=== PATIENT | female | born 1930 | race Caucasian/White ===

== ENCOUNTER 2020-03-17 17:02 | Inpatient (IN) | payer MEDICARE, BC ==
[2020-03-17] VITALS (9 sets, daily range): BP systolic 98–125; BP diastolic 48–78
[~2020-03-17] VITALS: Ht 162.6 cm; Wt 60.3 kg
--- NOTE | 2020-03-17 21:00 | NUR ---
RN NOTES RECEIVED DIRECT ADMIT PATIENT FROM [facility]. PER REPORT PATIENT WILL ADMITTED FOR CARDIAC CATHETERIZATION DUE TO ELEVATED TROPONIN LAST TROPONIN WAS 15.724 PRIOR TO ADMISS[address]. PER [address] PIERRE. PATIENT IS ALERT ORIENTED X 4 SPEAK SOFTLY. CONNECTED TO MONITOR REVEALS AFIB HR 79 SATURATION 96% IN ROOM AIR. PATIENT HAD S/P FALL FROM HOME SUSTAIN WITH LEFT HUMERAL FRACTURE SLING PRESENT PRIOR TO ADMISSION. IV SITE ON RH G 20 AND RFA G 22 HL INTACT AND PATENT. PATIENT IS AWARE BUT NOT FULLY UNDERSTAND REGARDING THE UPCOMING PROCEDURE. WILL WAIT FOR THE ORDER TO ASKED FOR CONSENT. INSTRUCTED WITH CALL LIGHT AND DEMONSTRATE UNDERSTANDING. KEPT PT CLEAN AND DRY WITH BMX1. CALL LIGHT KEPT WITHIN EASY REACH. WILL CONT. TO MONITOR.
--- NOTE | 2020-03-17 21:20 | NUR ---
RN NOTES VERIFIED WITH DR. APODACA ABOUT THE PATIENT ADMISSION PER NICKEL PLATER PATIENT WILL BED ADMITTED BY HOSPITALIST, INFORMED DR. WANG AND MADE HER AWARE.
[2020-03-17] MEDS ORDERED: ATOR40TA PO (21:24)
[2020-03-17] MEDS ORDERED: [UNRECOGNIZED DRUG - OTHER] PO (21:24)
[2020-03-17] MEDS ORDERED: CARB-93 PO (21:32)
[2020-03-17] MEDS ORDERED: CEFT1PIG2 IV (21:32)
[2020-03-17] MEDS ORDERED: CLOP75TA15 PO (21:32)
[2020-03-17] MEDS ORDERED: CARV3.122 PO (21:32)
[2020-03-17] MEDS ORDERED: DOCU100C36 PO (21:32)
[2020-03-17] MEDS ORDERED: ONDANSETRON HCL/PF 4 MG/2 ML VIAL IVP PRN (22:30)
[2020-03-17] MEDS ORDERED: MORPHINE SULFATE INJ 2 MG/ML DISP.SYRIN IV PRN (22:30)
[2020-03-17] MEDS ORDERED: MAGNESIUM HYDROXIDE 30 ML UDC PO PRN (22:30)
[2020-03-17] MEDS ORDERED: Z GUARD REMEDY 2 OZ OINT TP PRN (22:30)
[2020-03-17] MEDS ORDERED: HYDROCODONE/APAP 5/325MG TABLET PO PRN (22:30)
[2020-03-17] MEDS ORDERED: ZOLPIDEM TARTRATE 5 MG TABLET PO PRN (22:30)
[2020-03-17] MEDS ORDERED: IV D5/0.45 NACL 1,000 ML IV PRN (22:30)
[2020-03-17] MEDS ORDERED: MAG HYDROX/AL HYDROX/SIMETH 30 ML UDC PO PRN (22:30)
--- NOTE | 2020-03-17 23:25 | NUR ---
RN NOTES RECEIVED A CALL FROM LAB AND REPORTED PATIENT TROPONIN 2.462, PATIENT LAST TROPONIN AT [facility] WAS 15.724, RELAYED RESULT TO DR. WANG THAT PATIENT TROPONIN WENT DOWN TO 2.462.NNO AT THIS TIME.
[2020-03-18] VITALS (45 sets, daily range): BP systolic 80–139; BP diastolic 24–84
[2020-03-18] MEDS ORDERED: MORPHINE SULFATE INJ 2 MG/ML DISP.SYRIN ONE (01:27)
--- NOTE | 2020-03-18 02:00 | NUR ---
RN NOTES PATIENT SCREAM FOR HELP , WENT TO PATIENT ROOM AND PATIENT STATED " HELP ME TO , ITS USELESS TO LIVE NOW". COMFORT CARE PROVIDED, GIVE SOME TIME TO PATIENT TO FEEL SAFE AND HAVE HOPE. PATIENT WANTS SOMEONE TO TALK TO AT ALL TIMES. FEELING HOPELESS AND ALONE.
[2020-03-18 04:43] LABS: BASOPHILS % (AUTO) 0.3 % (0.0-2.0); HEMATOCRIT 38 % (33-45); HEMOGLOBIN 12.4 g/dL (11.5-14.8); LYMPHOCYTES # (AUTO) 0.8 /CMM (0.8-4.8); LYMPHOCYTES % (AUTO) 6.7 % (20.0-44.0); MEAN CORPUSCULAR HGB CONC 33 g/dl (31.0-36.0); MEAN CORPUSCULAR VOLUME 90 fL (82-100); MONOCYTES # (AUTO) 0.7 /CMM (0.1-1.30); MONOCYTES % (AUTO) 5.7 % (2.0-12.0); NEUTROPHILS # (AUTO) 10.7 /CMM (1.8-8.9); NEUTROPHILS % (AUTO) 87.3 % (43.0-81.0); PLATELET COUNT (AUTO) 89 /CMM (150-450); WHITE BLOOD COUNT (AUTO) 12.3 K/uL (4.3-11.0)
[2020-03-18 05:10] LABS: LYMPHOCYTES % (MANUAL) 8 % (16-48); NEUTROPHILS % (MANUAL) 84 (42-76)
[2020-03-18 05:11] LABS: MONOCYTES % (MANUAL) 8 % (0-11.0)
[2020-03-18 05:31] LABS: CALCIUM, SERUM 8.3 mg/dL (8.5-10.1); MAGNESIUM 2.4 mg/dL (1.8-2.4); PHOSPHORUS 2.7 mg/dL (2.5-4.9); POTASSIUM 3.4 mmol/L (3.5-5.1)
[2020-03-18] MEDS ORDERED: IV NS 0.9% 1,000 ML ONE (05:39)
[2020-03-18] MEDS ORDERED: VERAPAMIL HCL IV 5 MG/2 ML VIAL ONE (05:39)
[2020-03-18] MEDS ORDERED: NITROGLYCERIN ICAR 1,000 MCG/10 ML VIAL ICAR ONE (05:39)
[2020-03-18] MEDS ORDERED: LIDOCAINE HCL/MPF 1% 30 ML VIAL IJ ONE (05:39)
[2020-03-18] MEDS ORDERED: IODIXANOL 150 ML IV ONE (05:39)
[2020-03-18] MEDS ORDERED: IV NS 0.9% 50 ML IV ONE (05:58)
[2020-03-18] MEDS ORDERED: MIDAZOLAM HCL 2 MG/2ML VIAL ONE ×2 (06:15→10:21)
[2020-03-18] MEDS ORDERED: HEPARIN SODIUM, PORCINE 1,000 UNIT/ML VIAL ONE (06:15)
[2020-03-18] MEDS ORDERED: FENTANYL PF 100MCG/2ML AMPUL ONE (06:15)
--- NOTE | 2020-03-18 06:25 | NUR ---
RN NOTES PATIENT PICKED UP BY OR STAFF, CONSENT SIGNED WITH EDCEL AT BEDSIDE EXPLAINED THE PROCEDURE ABOUT LEFT HEART ART/VENTRICLE ANGIO OR HEART CATH. PATIENT IS AOX4 AGREED AND SIGNED CONSENT. LEFT AT THE ROOM AT THIS TIME.
--- NOTE | 2020-03-18 08:10 | NUR ---
RN INITIAL NOTES RECEIVED PT AWAKE, A/OX4 FROM DOSIER OPERATOR. RIGHT TR BAND IN PLACE. GOOD PALPABLE PULSE NOTED. NO CIRCULATORY IMPAIRMENT NOTED. PT ON ROOM AIR. CONNECTED TO MONITOR. VS WNL. SLING ON DUE TO LEFT HUMERAL FRACTURE. IV LINES IN PLACE. REIS IN PLACE. NO HEMATURIA NOTED. WILL FOLLOW POST CARDIAC CATH ORDERS. WILL CLOSELY MONITOR
[2020-03-18] MEDS ORDERED: POTASSIUM CHLORIDE 20 MEQ POWDER PACKET PO ONE (08:30)
[2020-03-18] MEDS: PANTOPRAZOLE 40 MG TABLET.DR PO SCH (08:40)
[2020-03-18] MEDS: ASPIRIN 81 MG TAB.CHEW PO SCH (08:40)
[2020-03-18] MEDS: LOSARTAN POTASSIUM 25 MG TABLET PO SCH (08:41)
[2020-03-18] MEDS: CARVEDILOL 3.125 MG TABLET PO SCH ×2 (08:41→16:51)
[2020-03-18] MEDS ORDERED: PANTOPRAZOLE 40 MG VIAL IV SCH (09:00)
--- NOTE | 2020-03-18 10:00 | NUR ---
RN NOTES RIGHT TR BAND REMOVED. NO BLEEDING NOTED. GOOD PALPABLE PULSE NOTED. NO CIRCULATORY IMPAIRMENT NOTED. WILL CLOSELY MONITOR
[2020-03-18] MEDS ORDERED: FENTANYL PF 250MCG/5ML AMPUL ONE (10:22)
[2020-03-18] MEDS ORDERED: FAMOTIDINE/PF INJ 20 MG/2 ML VIAL IV ONE (10:22)
[2020-03-18] MEDS ORDERED: BACITRACIN 50000 UNITS/VIAL ONE (11:32)
[2020-03-18] MEDS ORDERED: BUPIVACAINE 0.5 % PF 150 MG/30 ML VIAL ONE (11:32)
--- NOTE | 2020-03-18 11:55 | NUR ---
RN NOTES PT LEFT TO OR FOR LEFT HUMERUS ORIF. PT A/OX4. ON ROOM AIR. DENIES ANY PAIN. LEFT IN STABLE CONDITION
[2020-03-18] MEDS ORDERED: VANCOMYCIN 1 GM VIAL ONE (13:18)
--- NOTE | 2020-03-18 14:37 | NUR ---
RN NOTES RECEIVED PT FROM OR, SP LEFT HUMERUS ORIF. PT VERY DROWSY, OPEN EYES ON TACTILE STIMULI. SLOW RESPONSE TO VERBAL COMMANDS. ON SIMPLE MASK AT 10LPM. HOB ELEVATED. SURGICAL DRESSING ON LEFT SHOULDER. NO SIGNS OF BLEEDING NOTED. IV LINES IN PLACE. REIS IN PLACE. SHAREE REBOLLEDO NP IN THE UNIT. AWARE OF PT'S CURRENT CONDITION. WILL CLOSELY MONITOR.
[2020-03-18] MEDS ORDERED: MORPHINE SULFATE INJ 2 MG/ML DISP.SYRIN IV PRN (15:00)
[2020-03-18] MEDS ORDERED: HYDROCODONE/APAP 10/325MG TABLET PO PRN (15:00)
[2020-03-18] MEDS: IV D5/0.45 NACL W/20 MEQ KCL 1L IV PRN ×2 (16:43)
[2020-03-18] MEDS ORDERED: PIPERACILLIN /TAZOBACTAM 3.375 G in IV D5W 50 ML IV ONE (18:00)
--- NOTE | 2020-03-18 18:50 | NUR ---
RN CLOSING NOTES PT A/OX1, DROWSY. ON ROOM AIR. NO SOB NOTED. HOB ELEVATED. NO SIGNS OF PAIN NOTED. IVF INFUSING. SP LEFT HUMERUS ORIF, DRESSING ON. NO ACTIVE BLEEDING NOTED. SLING ON. KEPT CLEAN AND DRY. REPOSITIONING Q2. WILL ENDORSE FOR CONTINUITY OF CARE.
[2020-03-18] MEDS ORDERED: NOREPINEPHRINE 8 MG in IV NS 0.9% 242 ML IV PRN (19:30)
--- NOTE | 2020-03-18 19:30 | NUR ---
RN NOTES RECEIVED PATIENT DROWSY BARELY ANSWERING QUESTION AND FOLLOWS COMMAND. PATIENT HAD A S/P CARDIAC CATH THIS MORNING AND S/P ORIF OF LEFT PROXIMAL HUMERUS FX. WITH SLING ON AFFECTED SITE. AFIB ON TELE MONITOR. SATURATION 93% IN ROOM AIR. NO SOB OR ACUTE RESPIRATORY DISTRESS. AFEBRILE. SBP IN 90'S PALE LOOKING LEVOPHED STANDBY. IV SITE ON RH G 20 AND RFA G 22 INTACT AND PATENT ONGOING . KEPT PT CLEAN AND DRY. TURN AND REPOSITION GENTLY. WILL CLOSELY MONITOR.
[2020-03-18] MEDS: ANCEF 1 GM/50 ML D5W IV SCH ×2 (21:00)
--- NOTE | 2020-03-18 21:06 | NUR ---
RN NOTES STARTED LEVOPHED SBP WENT DOWN TO 83/41 REPEATED X3 SBP STILL <90MMHG. WILL TITRATED
--- NOTE | 2020-03-18 21:30 | NUR ---
RN NOTES INSERTED IV ON LH G 20 INTACT WITH GOOD BLD. RETURN.
[2020-03-19] VITALS (59 sets, daily range): BP systolic 67–142; BP diastolic 33–76
--- NOTE | 2020-03-19 | NUR ---
RN NOTES PATIENT REMAINED DROWSY BUT ABLE TO ANSWER QUESTION SOFTLY. FOLLOWS COMMAND BY SQUEEZING HAND AND VERBALIZED FEELINGS. WILL CONTINUE TO MONITOR.
[2020-03-19] MEDS: PIPERACILLIN /TAZOBACTAM 3.375 G in IV D5W 100 ML IV SCH ×3 (01:25→17:09)
[2020-03-19] MEDS: ANCEF 1 GM/50 ML D5W IV SCH ×2 (04:52)
[2020-03-19 05:03] LABS: BASOPHILS % (AUTO) 0.1 % (0.0-2.0); EOSINOPHILS % (AUTO) 0.3 % (0.0-6.0); HEMATOCRIT 38 % (33-45); LYMPHOCYTES # (AUTO) 0.9 /CMM (0.8-4.8); LYMPHOCYTES % (AUTO) 2.8 % (20.0-44.0); MEAN CORPUSCULAR HGB CONC 32 g/dl (31.0-36.0); MEAN CORPUSCULAR VOLUME 92 fL (82-100); MONOCYTES % (AUTO) 6.1 % (2.0-12.0); NEUTROPHILS # (AUTO) 29.2 /CMM (1.8-8.9); NEUTROPHILS % (AUTO) 90.7 % (43.0-81.0); PLATELET COUNT (AUTO) 62 /CMM (150-450); RED BLOOD CELL COUNT(AUTO) 4.13 MIL/uL (4.0-5.2)
[2020-03-19 05:07] LABS: WHITE BLOOD COUNT (AUTO) 32.2 K/uL (4.3-11.0)
[2020-03-19] MEDS: IV D5/0.45 NACL W/20 MEQ KCL 1L IV PRN ×4 (05:07→17:08)
[2020-03-19 05:08] LABS: CALCIUM, SERUM 8.2 mg/dL (8.5-10.1); CARBON DIOXIDE 18 mmol/L (21-32); CHLORIDE 109 mmol/L (98-107); CREATININE 1.7 mg/dL (0.6-1.3); GLUCOSE 179 mg/dL (74-106); MAGNESIUM 2.6 mg/dL (1.8-2.4); POTASSIUM 4.6 mmol/L (3.5-5.1); SODIUM SERUM 144 mmol/L (136-145); UREA NITROGEN, BLOOD 66 mg/dL (7-18)
[2020-03-19 05:23] LABS: LYMPHOCYTES % (MANUAL) 4 % (16-48); MONOCYTES % (MANUAL) 7 % (0-11.0); NEUTROPHILS % (MANUAL) 89 (42-76)
--- NOTE | 2020-03-19 06:00 | NUR ---
RN NOTES BEDBATH DONE AND TOLERATED WELL. PATIENT IS MORE AWAKE AND BACK TO BASELINE MENTAL STATUS. DENIES PAIN. AFEBRILE. VSS. CONTINUE WITH LEVOPHED TITRATED ORDERED. PATIENT ATE WELL AND TOLERATED WELL. RIGHT RADIAL NO BLEEDING BRUISE STILL NOTED. KEPT PT CLEAN AND DRY. WILL ENDORSED CONTINUITY OF CARE TO AM NURSE.
--- NOTE | 2020-03-19 07:20 | NUR ---
RN INITIAL NOTES RECEIVED PT ASLEEP, EASY TO AROUSE. ON ROOM AIR. NO SOB NOTED. HOB ELEVATED. DENIES ANY PAIN AT THIS TIME. IVF INFUSING. ON LEVO AT 0.1MCG/KG/MIN. WILL TITRATE ACCORDINGLY. FC IN PLACE. NO HEMATURIA NOTED. BLE ELEVATED. WILL MONITOR
[2020-03-19] MEDS: ASPIRIN 81 MG TAB.CHEW PO SCH (08:30)
--- NOTE | 2020-03-19 08:30 | NUR ---
RN NOTES SEEN AND EXAMINED BY SHAREE REBOLLEDO NP. AWARE OF CURRENT LAB VALUES AND CXR RESULT. PT ON LEVO, WILL TITRATE ACCORDINGLY. ON IVF. WILL CONTINUE TO MONITOR
[2020-03-19] MEDS: CARVEDILOL 3.125 MG TABLET PO SCH ×2 (08:31→17:00)
[2020-03-19] MEDS: LOSARTAN POTASSIUM 25 MG TABLET PO SCH (08:31)
[2020-03-19] MEDS: PANTOPRAZOLE 40 MG TABLET.DR PO SCH (08:31)
[2020-03-19 15:39] LABS: BILIRUBIN,URINE NEGATIVE (NEGATIVE); BLOOD, URINE LARGE Ery/uL (NEGATIVE); COLOR,URINE YELLOW (YELLOW); LEUKOCYTE ESTERASE ,URINE NEGATIVE (NEGATIVE); NITRITE, URINE NEGATIVE (NEGATIVE); PH,URINE 5.5 (5.0-8.0); PROTEIN,URINE 100 mg/dl (NEGATIVE); UGLUCOSE NEGATIVE (NEGATIVE); UROBILINOGEN,URINE 0.2 EU/dL (0.2)
[2020-03-19 15:48] LABS: EOSINOPHIL,URINE None Seen
[2020-03-19 15:52] LABS: BACTERIA,URINE 1+ /HPF (None Seen); RBC,URINE 51-80 /HPF (0-2); WBC,URINE 0-2 /HPF (0-3)
[2020-03-19 15:53] LABS: COARSE GRANULAR CASTS,URINE Few /LPF (None Seen); SQUAMOUS EPITHELIAL CELL,UR Few /HPF (None Seen)
--- NOTE | 2020-03-19 18:54 | NUR ---
RN CLOSING NOTES NO SIGNIFICANT CHANGE NOTED. PT REMAINS A/O, ON ROOM AIR. NO RESPIRATORY DISTRESS NOTED. KEPT COMFORTABLE. KEPT CLEAN AND DRY. REPOSITIONED Q2. BLE ELEVATED. WILL ENDORSE FOR CONTINUITY OF CARE.
--- NOTE | 2020-03-19 19:35 | NUR ---
RN NOTES RECEIVED PATIENT AWAKE ALERT ORIENTED WATCHING TV ON BED AND DRINKING MILK, MINIMAL ASSISTANCE PROVIDED. AFEBRILE. NO SOB IN ROOM AIR. SATURATION 95%. AFIB ON TELE MONITOR. DENIES CHEST PAIN. LEFT ARM WITH SLING KEPT IN PLACED. DENIES PAIN. IV SITE ON RH G#20 ,LW G#20 AND RFA ARE ALL INTACT AND PATENT WITH IVF RUNNING ORDERED. KEPT PT CLEAN AND DRY. TURNED AND REPOSITION FOR COMFORT. WILL CONTINUE TO MONITOR.
[2020-03-20] VITALS (17 sets, daily range): BP systolic 94–132; BP diastolic 34–96
[2020-03-20] MEDS: PIPERACILLIN /TAZOBACTAM 3.375 G in IV D5W 100 ML IV SCH ×2 (01:31→09:58)
[2020-03-20 04:35] LABS: BASOPHILS % (AUTO) 0.1 % (0.0-2.0); EOSINOPHILS % (AUTO) 0.1 % (0.0-6.0); HEMATOCRIT 33 % (33-45); HEMOGLOBIN 10.9 g/dL (11.5-14.8); LYMPHOCYTES # (AUTO) 1.5 /CMM (0.8-4.8); LYMPHOCYTES % (AUTO) 7.1 % (20.0-44.0); MEAN CORPUSCULAR HGB CONC 33 g/dl (31.0-36.0); MEAN CORPUSCULAR VOLUME 90 fL (82-100); MONOCYTES # (AUTO) 0.8 /CMM (0.1-1.30); MONOCYTES % (AUTO) 3.9 % (2.0-12.0); NEUTROPHILS # (AUTO) 19.3 /CMM (1.8-8.9); NEUTROPHILS % (AUTO) 88.8 % (43.0-81.0); RED BLOOD CELL COUNT(AUTO) 3.65 MIL/uL (4.0-5.2); WHITE BLOOD COUNT (AUTO) 21.7 K/uL (4.3-11.0)
[2020-03-20 04:39] LABS: PLATELET COUNT (AUTO) 43 /CMM (150-450)
[2020-03-20 04:50] LABS: CALCIUM, SERUM 7.8 mg/dL (8.5-10.1); CARBON DIOXIDE 22 mmol/L (21-32); CHLORIDE 112 mmol/L (98-107); CREATININE 1.2 mg/dL (0.6-1.3); GLUCOSE 139 mg/dL (74-106); POTASSIUM 3.8 mmol/L (3.5-5.1); SODIUM SERUM 144 mmol/L (136-145); UREA NITROGEN, BLOOD 56 mg/dL (7-18)
[2020-03-20 05:00] LABS: BAND % (MANUAL) 4 % (0.0-5.0); LYMPHOCYTES % (MANUAL) 9 % (16-48); MONOCYTES % (MANUAL) 11 % (0-11.0); NEUTROPHILS % (MANUAL) 76 (42-76)
--- NOTE | 2020-03-20 07:07 | NUR ---
RN NOTES PATIENT ASLEEP WELL. NO SIGNIFICANT CHANGES THROUGHOUT THE SHIFT. AFEBRILE. VSS. REMAINED AFIB ON TELE MONITOR. no APPARENT DISTRESS IN ROOM AIR.SATURATION 95%. INCONTINENT CARE RENDERED BM X 2 (MOD. LOOSE BROWN STOOL). TURNED AND REPOSITIONED Q2H AND PRN. KEPT PT CLEAN AND DRY. LEFT SHOULDER WITH SLING TO SUPPORT THE AFFECTED SITE. ENDORSED CONTINUITY OF CARE TO AM NURSE.
--- NOTE | 2020-03-20 07:10 | NUR ---
RN INITIAL NOTES RECEIVED PT ASLEEP, EASY TO AROUSE. ON ROOM AIR. NO SOB NOTED. HOB ELEVATED. DENIES ANY PAIN AT THIS TIME. IVF INFUSING. FC IN PLACE. NO HEMATURIA NOTED. PT COMFORTABLE. BLE ELEVATED. WILL MONITOR
[2020-03-20] MEDS: ASPIRIN 81 MG TAB.CHEW PO SCH (08:35)
[2020-03-20] MEDS: CARVEDILOL 3.125 MG TABLET PO SCH ×2 (08:35→17:18)
[2020-03-20] MEDS: PANTOPRAZOLE 40 MG TABLET.DR PO SCH (08:35)
[2020-03-20] MEDS: IV D5/0.45 NACL W/20 MEQ KCL 1L IV PRN ×2 (11:42)
--- NOTE | 2020-03-20 13:50 | NUR ---
RECEIVED REPORT FROM ADITHYA. PT TRANSFERRED TO [facility] BY BED BY TWO NURSES WITH ACLS PROTOCOLS IN PLACE. PT STABLE ON RA. PT NOTED WITH IV ACCESS IN R/L HAND G#20 AND LFA G#22, INTACT, PATENT AND FLUSHING WELL. REIS CATHETER IN PLACE DRAINING CLEAR YELLOW URINE OUTPUT. LEFT HUMERUS IN SLING AND SURGICAL DRESSING ON SITE, INTACT AND DRY. SAFETY PRECAUTION IN PLACE AND MAINTAINED AT ALL TIMES. BED IN LOWEST LOCKED POSITION, HOB ELEVATED, SIDE RAILS UP X 2, CALL LIGHT AND TABLE WITHIN REACH. WILL CONTINUE TO MONITOR
--- NOTE | 2020-03-20 14:02 | NUR ---
RN NOTES PT TRANSFERRED TO ROOM 327-1. PT A/O, ON ROOM AIR. NO RESPIRATORY DISTRESS NOTED. NO SIGNS OF PAIN NOTED. IV LINES IN PLACE. REIS IN PLACE. REPORT GIVEN TO RAFAL RICKETTS. TOOK OVER PT'S CARE. TRANSFERRED IN STABLE CONDITION. ALEXANDR (DAUGHTER) AWARE OF TRANSFER
[2020-03-20] MEDS: CEFEPIME 2 GM in IV D5W 100 ML IV SCH (17:17)
--- NOTE | 2020-03-20 19:10 | NUR ---
RN NOTE RECEIVED PATIENT IN BED RESTING, WATCHING TV. PATIENT IS A&O X2-3 WITH PERIODS OF CONFUSION. ABLE TO MAKE NEEDS KNOWN. BREATHING IS EVEN AND UNLABORED, NO SOB NOTED AT THIS TIME, ON ROOM AIR. IV ON RIGHT HAND, LEFT HAND GAUGE 20, LEFT FOREARM GAUGE 22 ARE CLEAN, DRY, AND PATENT. NOTED LEFT SHOULDER SLING. PER AM SHIFT REPORT, PATIENT HAS LEFT HUMERUS FRACTURE. IN NO APPARENT DISTRESS NOTED AT THIS TIME. BED IS LOWERED TO LOW POSITION AND LOCKED FOR SAFETY. CALL LIGHT IS WITHIN EASY REACH. WILL CONTINUE TO MONITOR.
--- NOTE | 2020-03-20 19:10 | NUR ---
SPRAY GUNNER CLOSING NOTES PT AWAKE IN BED AT THIS TIME. PT REMAINED STABLE THROUGHOUT SHIFT. ALL CARE, NEED, MEDICATIONS AND TREATMENT ADMINISTERED ANTICIPATED PER ORDER. PT KEPT CLEAN AND DRY. REIS CATHETER CARE PROVIDED. PT REPOSITIONED Q2HRS AND PRN. ASPIRATION AND SAFETY PRECAUTION IN PLACE AND MAINTAINED AT ALL TIMES. BED IN LOWEST LOCKED POSITION, HOB ELEVATED, SIDE RAILS UP X 2, CALL LIGHT AND TABLE WITHIN REACH. WILL CONTINUE TO MONITOR.
[2020-03-21] VITALS: BP 116/58
[2020-03-21 04:00] VITALS: BP 120/62
[2020-03-21] MEDS: PANTOPRAZOLE 40 MG TABLET.DR PO SCH (06:34)
--- NOTE | 2020-03-21 07:05 | NUR ---
RN NOTE PATIENT REMAINED STABLE THROUGHOUT THE NIGHT. NO SIGNIFICANT CHANGES NOTED. PATIENT KEPT CLEAN, DRY, AND COMFORTABLE. NOTED X1 BM. WILL ENDORSE TO AM SHIFT RN FOR CONTINUATION OF CARE.
--- NOTE | 2020-03-21 07:30 | NUR ---
RN OPENING NOTE THE PATIENT IS RECEIVED IN BED. PATIENT IS ALERT AND ORIENTED X3 WITH EPISODES OF FORCEFULNESS. ABLE TO MAKE NEEDS KNOWN VERBALLY. IN ROOM AIR AND DENIES SOB. RESPIRATION REGULAR AND UNLABORED. DENIES PAIN. THE PATIENT IS IN NO APPARENT DISTRESS. TELE BOX READING IS AFIB 63. LFA G 22 PATENT AND KCL 20 MEQ D5 1/2 NS INFUSING AT 75ML/HR AND NO S/S INFILTRATION NOTED. LEFT ARM IN A SLING AND NO S/S POOR CIRCULATION NOTED. BED LOW AND LOCKED. SIDE RAILS UP X3. CALL LIGHT WITHIN REACH. WILL CONTINUE TO MONITOR.
[2020-03-21 08:00] LABS: BASOPHILS % (AUTO) 0.2 % (0.0-2.0); EOSINOPHILS % (AUTO) 0.2 % (0.0-6.0); HEMATOCRIT 36 % (33-45); HEMOGLOBIN 11.5 g/dL (11.5-14.8); LYMPHOCYTES % (AUTO) 4.6 % (20.0-44.0); MEAN CORPUSCULAR HGB CONC 32 g/dl (31.0-36.0); MEAN CORPUSCULAR VOLUME 92 fL (82-100); MONOCYTES # (AUTO) 0.7 /CMM (0.1-1.30); MONOCYTES % (AUTO) 3.4 % (2.0-12.0); NEUTROPHILS # (AUTO) 19.3 /CMM (1.8-8.9); NEUTROPHILS % (AUTO) 91.6 % (43.0-81.0)
[2020-03-21 08:05] LABS: CALCIUM, SERUM 8.2 mg/dL (8.5-10.1); CREATININE 0.8 mg/dL (0.6-1.3); POTASSIUM 4.6 mmol/L (3.5-5.1)
[2020-03-21 08:49] VITALS: BP 133/66
[2020-03-21 08:52] LABS: PLATELET COUNT (AUTO) 46 /CMM (150-450)
[2020-03-21] MEDS: ASPIRIN 81 MG TAB.CHEW PO SCH (09:08)
[2020-03-21] MEDS: CARVEDILOL 3.125 MG TABLET PO SCH ×2 (09:09→17:29)
--- NOTE | 2020-03-21 10:56 | NUR ---
RN LOW PLATELETS ZAINA REBOLLEDO IS MADE AWARE OF PLATELET COUNT O 46. NO NEW ORDER PER DNP.
[2020-03-21 12:14] VITALS: BP 119/65
[2020-03-21] MEDS: LISINOPRIL (5MG) 5 MG TABLET PO SCH (14:01)
[2020-03-21] MEDS: IV D5/0.45 NACL W/20 MEQ KCL 1L IV PRN ×2 (14:21)
[2020-03-21 16:14] VITALS: BP 122/52
[2020-03-21] MEDS: CEFEPIME 2 GM in IV D5W 100 ML IV SCH (17:29)
--- NOTE | 2020-03-21 18:23 | NUR ---
RN CLOSING NOTE THE PATIENT IS ALERT AND ORIENTED X3 WITH EPISODES OF FORGETFULNESS. IN ROOM AIR AND SATURATION IS AT 96%. DENIES SOB. RESPIRATION REGULAR AND UNLABORED. DENIES PAIN. LFA G 22 PATENT AND KCL 20 MEW D5 1/2 INFUSING AT 75ML/RH AND NO S/S INFILTRATION NOTED. REIS CATH PRESENT AND NOTED CLEAR, YELLOW COLOR URINE. NO BLADDER DISTENSION NOTED. TELE BOX READING IS AFIB 65. THE PATIENT IS IN NO APPARENT DISTRESS. BED LOW AND LOCKED. SIDE RAILS UP X3. CALL LIGHT WITHIN REACH. WILL ENDORSE TO MEDICAL TRANSCRIPTION SUPERVISOR. Addendum: 03/21/20 at 1827 by EMMY MOHR RN RN NOTE LEFT ARM IN A SLING AND NO S/S POOR CIRCULATION NOTED.
[2020-03-21 20:00] VITALS: BP 116/54
--- NOTE | 2020-03-21 20:00 | NUR ---
RN NOTES RECEIVED PATIENT IN BED, ALERT AND ORIENTED X2, WITH FORGETFULNESS, STABLE ON ROOM AIR, NO COMPLAIN OF PAIN, WITH LEFT SHOULDER SLING, NOTED LEFT FINGERS SWOLLEN, BRISK CAPILLARY REFILL, ABLE TO WIGGLE FINGERS, REIS CATHETER DRAINING WITH DARK YELLOW URINE, GENERALIZED WEAKNESS, KEPT SAFE, WILL CONTINUE TO MONITOR.
[2020-03-22] VITALS: BP 106/52
[2020-03-22 04:00] VITALS: BP 136/78
--- NOTE | 2020-03-22 06:44 | NUR ---
RN NOTES ALERT AND AWAKE, STABLE ON ROOM AIR, NO COMPLAIN OF PAIN AT REST, A-FLUTTER ON THE TELE, S/P LEFT HUMERUS ORIF, ISLAND DRESSING, DRIED DRAINAGE, WITH SLING, SWOLLEN FINGERS, SKIN WARM TO TOUCH, BRISK CAPILLARY REFILL, ON D5 1/2 NS + KCL 20 MEQ AT 75 ML/HR, POTASSIUM LEVEL 03/21/20 4.6, IVF STOPPED, BMP, CBC, MONITOR POTASSIUM LEVEL, PENDING BLOOD CULTURE.
[2020-03-22 07:23] LABS: CALCIUM, SERUM 8.2 mg/dL (8.5-10.1); CREATININE 0.6 mg/dL (0.6-1.3); POTASSIUM 4.5 mmol/L (3.5-5.1)
[2020-03-22 07:24] LABS: BASOPHILS % (AUTO) 0.1 % (0.0-2.0); EOSINOPHILS % (AUTO) 0.2 % (0.0-6.0); HEMATOCRIT 36 % (33-45); HEMOGLOBIN 11.2 g/dL (11.5-14.8); LYMPHOCYTES % (AUTO) 5.3 % (20.0-44.0); MEAN CORPUSCULAR HGB CONC 32 g/dl (31.0-36.0); MEAN CORPUSCULAR VOLUME 94 fL (82-100); MONOCYTES # (AUTO) 0.9 /CMM (0.1-1.30); MONOCYTES % (AUTO) 4.6 % (2.0-12.0); NEUTROPHILS # (AUTO) 16.7 /CMM (1.8-8.9); NEUTROPHILS % (AUTO) 89.8 % (43.0-81.0); RED BLOOD CELL COUNT(AUTO) 3.78 MIL/uL (4.0-5.2); WHITE BLOOD COUNT (AUTO) 18.6 K/uL (4.3-11.0)
[2020-03-22 07:53] LABS: PLATELET COUNT (AUTO) 49 /CMM (150-450)
[2020-03-22] MEDS: PANTOPRAZOLE 40 MG TABLET.DR PO SCH (07:55)
--- NOTE | 2020-03-22 08:00 | NUR ---
RN Opening note Received patient in bed sleeping AO x 2-3 able to responds all stimuli, does no appears pain or discomfort. Skin is warm to touch keep clean/dry, intact IV site on left FA 22g. Respiratory even and unlabored on room air O2sat 98%, no sbo or distress observed. Kept bed locked with elevated HOB for ensure airway and aspiration precaution also lowest bed position for safety. Call light within reach will continue to monitor.
[2020-03-22] MEDS: CARVEDILOL 3.125 MG TABLET PO SCH ×2 (10:02→16:57)
[2020-03-22] MEDS: LISINOPRIL (5MG) 5 MG TABLET PO SCH (10:02)
[2020-03-22 10:45] LABS: LYMPHOCYTES % (MANUAL) 6 % (16-48); MONOCYTES % (MANUAL) 4 % (0-11.0); NEUTROPHILS % (MANUAL) 90 (42-76)
--- NOTE | 2020-03-22 12:04 | NUR ---
Patient noted scratched scar on right back, clean with NS open to air, wound picture taken. Will continue to monitor.
[2020-03-22] MEDS: FUROSEMIDE 20 MG TABLET PO SCH (16:57)
[2020-03-22] MEDS: CEFEPIME 2 GM in IV D5W 100 ML IV SCH (16:58)
--- NOTE | 2020-03-22 18:17 | NUR ---
RN Closing note Patient in bed resting does no appears pain or distress. Skin is warm to touch intact IV site on left hand 22g with SL. Respiratory even and unlabored on room air O2sat 98%. Kept locked bed with elevated HOB for ensure airway and aspiration precaution also lowest position for safety, call light within reach, will endorse fast food shift supervisor.
--- NOTE | 2020-03-22 20:00 | NUR ---
RN NOTES ALERT AND ORIENTED X2, CALM, COOPERATIVE, NO COMPLAIN OF PAIN, LEFT SHOULDER WITH SLING, LEFT SHOULDER AND FINGERS SWELLING, WARM TO TOUCH, ABLE TO MOVE FINGERS, REIS CATHETER DRAINING DARK YELLOW URINE, KEPT SAFE, WILL CONTINUE TO MONITOR.
[2020-03-22 20:28] VITALS: BP 117/55
[2020-03-22 22:00] VITALS: BP 117/55
[2020-03-23 00:32] VITALS: BP 147/56
[2020-03-23 04:00] VITALS: BP 140/70
--- NOTE | 2020-03-23 06:18 | NUR ---
RN NOTES ALERT AND ORIENTED X2, STABLE ON ROOM AIR, NO COMPLAIN OF PAIN AT REST, LEFT ARM ON SLING, NWB, DRESSING WITH DRIED DRAINAGE, REIS CATHETER DRAINING, DISCHARGE PLANNING TO [facility]
[2020-03-23 06:59] LABS: BASOPHILS % (AUTO) 0.1 % (0.0-2.0); EOSINOPHILS % (AUTO) 0.5 % (0.0-6.0); HEMATOCRIT 35 % (33-45); HEMOGLOBIN 11.4 g/dL (11.5-14.8); LYMPHOCYTES % (AUTO) 4.7 % (20.0-44.0); MEAN CORPUSCULAR HGB CONC 33 g/dl (31.0-36.0); MEAN CORPUSCULAR VOLUME 91 fL (82-100); MONOCYTES % (AUTO) 4.6 % (2.0-12.0); NEUTROPHILS % (AUTO) 90.1 % (43.0-81.0); PLATELET COUNT (AUTO) 65 /CMM (150-450); RED BLOOD CELL COUNT(AUTO) 3.84 MIL/uL (4.0-5.2); WHITE BLOOD COUNT (AUTO) 21.1 K/uL (4.3-11.0)
--- NOTE | 2020-03-23 07:30 | NUR ---
MS/RN Opening note Patient received from nightman. A/O X2, appears comfortable, in no pain or distress at this time. Vital signs stable, no fevers noted. Left arm in sling, bruising and some edema noted to arm. Heplock flushing well with normal saline, no signs of infiltration seen. Safety measures in place, bed in low position, side rails X3 in upright position. Call light within reach, will continue to monitor and ensure safety.
[2020-03-23 07:38] LABS: ALBUMIN 1.8 g/dL (3.4-5.0); BILIRUBIN,TOTAL 0.8 mg/dL (0.2-1.0); CALCIUM, SERUM 8.3 mg/dL (8.5-10.1); CREATININE 0.7 mg/dL (0.6-1.3); MAGNESIUM 2.2 mg/dL (1.8-2.4); PHOSPHORUS 3.4 mg/dL (2.5-4.9); TOTAL PROTEIN, SERUM 4.9 g/dL (6.4-8.2)
[2020-03-23 08:00] VITALS: BP 148/65
[2020-03-23 08:48] LABS: BAND % (MANUAL) 1 % (0.0-5.0); LYMPHOCYTES % (MANUAL) 6 % (16-48); MONOCYTES % (MANUAL) 3 % (0-11.0); MYELOCYTES % 3 % (0-0); NEUTROPHILS % (MANUAL) 87 (42-76)
--- NOTE | 2020-03-23 09:00 | NUR ---
MS/RN Medications Morning medications administered, crushed with apple sauce.
[2020-03-23] MEDS: FUROSEMIDE 20 MG TABLET PO SCH (09:28)
[2020-03-23] MEDS: PANTOPRAZOLE 40 MG TABLET.DR PO SCH (09:28)
[2020-03-23] MEDS: LISINOPRIL (5MG) 5 MG TABLET PO SCH (09:28)
[2020-03-23] MEDS: ASPIRIN 81 MG TAB.CHEW PO SCH (09:28)
[2020-03-23] MEDS: CARVEDILOL 3.125 MG TABLET PO SCH ×2 (09:29→16:58)
--- NOTE | 2020-03-23 11:00 | NUR ---
MS/RN Physical Theapy Seen by PT - patient appropriate for acute rehab placement.
[2020-03-23 12:00] VITALS: BP 108/49
--- NOTE | 2020-03-23 13:30 | NUR ---
MS/RN S/B Aguila Nelson DNP Seen by DNP - discharge planning to acute rehab when cleared by ID. Procalcitionin level remain elevated, continue with broad spectrum antibitoics.
[2020-03-23 16:00] VITALS: BP 109/54
--- NOTE | 2020-03-23 16:21 | NUR ---
MS/retail management trainee Patient evaluated for [facility], accepted, will need rapid covid swab just prior to discharge.
[2020-03-23] MEDS: CEFEPIME 2 GM in IV D5W 100 ML IV SCH (17:04)
--- NOTE | 2020-03-23 18:40 | NUR ---
MS/RN End note Spoke with patient's daughter Key Emanuel , concerned that patient appears more confused than her baseline, stating that they are having trouble understanding what she is trying to communicate. Dr Nelson contacted, CT brain ordered without contrast along with neurology consult. DNP will call family in morning to discuss results. All needs attended throughout the day, will endorse to night warehouse manager.
--- NOTE | 2020-03-23 19:25 | NUR ---
IRONING WORKER OPENING NOTES RECEIVED PATIENT IN BED, ALERT AND ORIENTED X 2. VERBALLY RESPONSIVE AND ABLE TO FOLLOW DIRECTIONS. BREATHING REGULAR AND UNLABORED ON ROOM AIR. LEFT HAND G22 IV LINE INTACT AND PATENT, FLUSHING WELL WITH NO BLEEDING OR S/S OF INFILTRATION NOTED. ON CARDIAC MONITORING WITH ATRIAL FLUTTER AT 64bpm. NO S/S OF PAIN/DISCOMFORT NOTED AT THIS TIME. BED LOW AND LOCKED ON SEMI FOWLERS POSITION, CALL LIGHT IN REACH. WILL CONTINUE TO MONITOR.
[2020-03-23 20:00] VITALS: BP 121/67
[2020-03-24] VITALS: BP 131/60
[2020-03-24 04:00] VITALS: BP 123/68
[2020-03-24] MEDS: PANTOPRAZOLE 40 MG TABLET.DR PO SCH (06:36)
--- NOTE | 2020-03-24 06:40 | NUR ---
LEACH TANK TENDER CLOSING NOTES PATIENT IN BED, ALERT AND ORIENTED X 2. AFEBRILE WITH NO S/S OF DISTRESS OBSERVED. LEFT HAND G22 IV LINE PATENT AND FLUSHING WELL. MAINTAINED ON CARDIAC MONITORING WITH ATRIAL FLUTTER AT 60bpm. NO S/S OF PAIN/DISCOMFORT NOTED AT THIS TIME. BED LOW AND LOCKED ON SEMI FOWLERS POSITION, CALL LIGHT IN REACH. WILL ENDORSE TO MORNING SHIFT FOR MADISON.
[2020-03-24 08:00] VITALS: BP 136/74
[2020-03-24] MEDS: LISINOPRIL (5MG) 5 MG TABLET PO SCH (09:09)
[2020-03-24] MEDS: FUROSEMIDE 20 MG TABLET PO SCH (09:09)
[2020-03-24] MEDS: ASPIRIN 81 MG TAB.CHEW PO SCH (09:09)
[2020-03-24] MEDS: CARVEDILOL 3.125 MG TABLET PO SCH ×2 (09:09→17:43)
--- NOTE | 2020-03-24 10:25 | NUR ---
RN NOTE COVID-19 RAPID SCREENING ORDER PER DNP AMAURY FOR PLACEMENT REASON. NOTED AND CARRIED OUT.
--- NOTE | 2020-03-24 11:10 | NUR ---
tele seamer: notes covid antigen collected and sent to lab per order.
--- NOTE | 2020-03-24 11:30 | NUR ---
tele buck presser: notes incontinent of bowel rendered, noted with mucoid blood stool and masd to right inner buttock and upper right buttock with sacral dti. dr. corral at bedside and aware with verbal order for wound consult. order carried out and acknowledged.
[2020-03-24 12:00] VITALS: BP 120/75
--- NOTE | 2020-03-24 12:10 | NUR ---
tele wound care center consultant: notes lab called re: covid antigen result which is negative.
--- NOTE | 2020-03-24 12:40 | NUR ---
tele magnetic tape winder: plastic surgeon consult seen by ian alfaro) at this time and will put the order in as stated. turned and repositioned. kept comfortable. will continue to monitor.
--- NOTE | 2020-03-24 13:30 | NUR ---
tele chief accountant: certified medication technician consult seen and examined by davida (keny) with orders. orders acknowledged. lab called to brass pickler stool sample.
[2020-03-24 14:39] LABS: THYROID STIMULATING HORMONE 3.164 uIU/mL (0.358-3.74)
[2020-03-24 14:46] LABS: C-REACTIVE PROTEIN 11.3 mg/dL (0.0-0.9)
[2020-03-24 16:00] VITALS: BP 140/76
--- NOTE | 2020-03-24 17:41 | NUR ---
tele farmworker: notes received tx order from ian (pac). will continue to monitor.
[2020-03-24] MEDS: ENSURE ENLIVE 237 ML LIQUID (VANILLA) PO SCH (17:43)
--- NOTE | 2020-03-24 18:30 | NUR ---
tele calibration specialist: notes inserted new line to right wrist, gauge #22. needs attended. kept comfortable. no distress noted. will continue to monitor.
[2020-03-24] MEDS: CEFEPIME 2 GM in IV D5W 100 ML IV SCH (18:38)
--- NOTE | 2020-03-24 19:15 | NUR ---
tele career development engineer: notes report given to kain reza) for continuity of care.
--- NOTE | 2020-03-24 19:30 | NUR ---
DATA ANALYSIS MANAGER OPENING NOTES RECEIVED PATIENT RESTING IN BED COMFORTABLY; A/OX2, CONFUSED/FORGETFUL; L ARM SLING PRESENT; BREATHING EVEN AND UNLABORED; TOLERATING ROOM AIR WELL; NO SOB NOTED; NO DISTRESS NOTED; R WRIST #22 INTACT AND PATENT, FLUSHING WELL; SAFETY PRECAUTIONS IMPLEMENTED; BED LOCKED IN LOW POSITION; SIDE RAILSX2; CALL LIGHT WITHIN REACH; WILL CONT TO MONITOR Addendum: 03/24/20 at 2138 by FRED RENDON RN TELE MONITOR READS SINUS RHYTHM
[2020-03-24 20:00] VITALS: BP 124/55
[2020-03-24 20:01] LABS: OCCULT BLOOD STOOL POSITIVE (NEGATIVE)
[2020-03-25] VITALS: BP 158/82
[2020-03-25 04:00] VITALS: BP_SYST 133; BP_SYST 158; BP_DIAS 63; BP_DIAS 82
--- NOTE | 2020-03-25 06:47 | NUR ---
HYPOID GEAR TESTER CLOSING NOTES PATIENT RESTING IN BED COMFORTABLY; A/OX2, CONFUSED; PATIENT ABLE TO MAKE NEEDS KNOWN; BREATHING EVEN AND UNLABORED; TOLERATING ROOM AIR WELL; NO DISTRESS NOTED; L ARM SLING PRESENT; TELE MONITOR READS A.FIB; R WRIST #22 INTACT AND PATENT; ALL NEEDS RENDERED; SAFETY PRECAUTIONS IMPLEMENTED; WILL ENDORSE MADISON TO ONCOMING SHIFT
--- NOTE | 2020-03-25 07:20 | NUR ---
ms rn received on bed, awake,alert,oriented x2,not in any form of distress, respirations even and unlabored,no pain at this time,will monitor patient.
--- NOTE | 2020-03-25 07:52 | NUR ---
WOUND CARE CONSULT: PT PRESENTS WITH SACRAL INTACT DEEP TISSUE INJURY WELL INCONTINENCE ASSOCIATED SKIN DAMAGE TO GLUTEAL CREASE AND PERIANAL AREA. THERE IS A LESION TO RT INNER BUTTOCK, NOT ON A BONY PROMINENCE. RECOMMEND FOLLOW UP BY SURGICAL TEAM. CONCUR WITH CURRENT WOUND CARE AND SKIN PROTECTION ORDERS. PT TO BE PLACED ON HEATHER ISOFLEX LOW AIRLOSS BED. DISCUSSED SKIN PROTECTION WITH NURSING STAFF. MD IN AGREEMENT WITH PLAN OF CARE.
[2020-03-25 08:00] VITALS: BP 152/78
[2020-03-25 08:13] LABS: IMMUNOGLOBULIN A, SERUM 166 mg/dL (64-422); IMMUNOGLOBULIN G, SERUM 736 mg/dL (586-1602); IMMUNOGLOBULIN M, SERUM 119 mg/dL (26-217)
--- NOTE | 2020-03-25 09:00 | NUR ---
ms saxena breakfast served ,due meds given,tolerated well.
[2020-03-25] MEDS: ASPIRIN 81 MG TAB.CHEW PO SCH (10:02)
[2020-03-25] MEDS: FUROSEMIDE 20 MG TABLET PO SCH (10:02)
[2020-03-25] MEDS: CARVEDILOL 3.125 MG TABLET PO SCH ×2 (10:03→17:00)
[2020-03-25] MEDS: LISINOPRIL (5MG) 5 MG TABLET PO SCH (10:03)
[2020-03-25] MEDS: PANTOPRAZOLE 40 MG TABLET.DR PO SCH (10:11)
[2020-03-25] MEDS: ENSURE ENLIVE 237 ML LIQUID (VANILLA) PO SCH ×3 (10:12→17:00)
--- NOTE | 2020-03-25 11:00 | NUR ---
ms rn was seen by pt, all needs attended.
[2020-03-25 11:27] LABS: CALCIUM, SERUM 8.6 mg/dL (8.5-10.1); CREATININE 0.7 mg/dL (0.6-1.3); POTASSIUM 3.5 mmol/L (3.5-5.1)
[2020-03-25 11:28] LABS: BASOPHILS % (AUTO) 0.2 % (0.0-2.0); EOSINOPHILS % (AUTO) 0.6 % (0.0-6.0); HEMATOCRIT 38 % (33-45); LYMPHOCYTES # (AUTO) 0.7 /CMM (0.8-4.8); LYMPHOCYTES % (AUTO) 4.2 % (20.0-44.0); MEAN CORPUSCULAR HGB CONC 32 g/dl (31.0-36.0); MEAN CORPUSCULAR VOLUME 93 fL (82-100); MONOCYTES # (AUTO) 0.9 /CMM (0.1-1.30); MONOCYTES % (AUTO) 5.2 % (2.0-12.0); NEUTROPHILS # (AUTO) 14.9 /CMM (1.8-8.9); NEUTROPHILS % (AUTO) 89.8 % (43.0-81.0); PLATELET COUNT (AUTO) 138 /CMM (150-450); RED BLOOD CELL COUNT(AUTO) 4.08 MIL/uL (4.0-5.2); WHITE BLOOD COUNT (AUTO) 16.6 K/uL (4.3-11.0)
[2020-03-25 12:00] VITALS: BP 139/64
[2020-03-25 16:00] VITALS: BP 117/58
[2020-03-25 17:02] LABS: *ANA ANTI-CENTROMERE B AB <0.2 AI (0.0-0.9); *ANA ANTI-DNA(DS) AB, QN 13 IU/mL (0-9); *ANA ANTI-JO-1 <0.2 AI (0.0-0.9); *ANA ANTICHROMATIN ANTIBODY 0.9 AI (0.0-0.9); *ANA RNP ANTIBODIES <0.2 AI (0.0-0.9); *ANA SJOGREN'S ANTI-SS-A <0.2 AI (0.0-0.9); *ANA SJOGREN'S ANTI-SS-B 0.2 AI (0.0-0.9); *ANAANTI-SCLERODERMA-70 AB 0.4 AI (0.0-0.9); *ANASMITH AB <0.2 AI (0.0-0.9); *SPE A/G RATIO 0.7 (0.7-1.7); *SPE ALPHA-1-GLOBULIN 0.4 g/dL (0.0-0.4); *SPE ALPHA-2-GLOBULIN 0.8 g/dL (0.4-1.0); *SPE BETA GLOBULIN 0.9 g/dL (0.7-1.3); *SPE GLOBULIN, TOTAL 2.8 g/dL (2.2-3.9); *SPE M-SPIKE 0.1 g/dL (Not Observed); *SPEGAMMA GLOBULIN 0.7 g/dL (0.4-1.8)
[2020-03-25] MEDS: CEFEPIME 2 GM in IV D5W 100 ML IV SCH (17:34)
--- NOTE | 2020-03-25 18:27 | NUR ---
ms rn all needs attended.
[2020-03-25 19:37] LABS: BAND % (MANUAL) 1 % (0.0-5.0); LYMPHOCYTES % (MANUAL) 3 % (16-48); MONOCYTES % (MANUAL) 3 % (0-11.0); NEUTROPHILS % (MANUAL) 93 (42-76)
--- NOTE | 2020-03-25 19:45 | NUR ---
FOOD MANAGER OPENING NOTES PATIENT RECEIVED RESTING IN BED COMFORTABLY; A/OX2, CONFUSED; BREATHING EVENLY AND UNLABORED; NO SOB NOTED; TOLERATING ROOM AIR WELL; TELE MONITOR READS CONTROLLED A.FIB; L SHOULDER IN SLING, SWELLING NOTED; EXTREMITY ELEVATED; R WRIST #22 INTACT AND PATENT; REIS CATH IN PLACE, WITH YELLOW OUTPUT; SAFETY PRECAUTIONS IMPLEMENTED; BED LOCKED IN LOW POSITION; SIDE RAILSX2; CALL LIGHT WITHIN REACH; WILL CONT TO MONITOR
[2020-03-25 20:00] VITALS: BP 112/52
[2020-03-26] VITALS: BP 130/62
[2020-03-26 04:00] VITALS: BP 127/53
--- NOTE | 2020-03-26 06:53 | NUR ---
BOARDMARKER CLOSING NOTES PATIENT RESTING IN BED COMFORTABLY; A/OX2, CONFUSED, ABLE TO MAKE NEEDS KNOWN; BREATHING EVEN AND UNLABORED; NO SOB NOTED; TOLERATING ROOM AIR WELL; TELE MONITOR SHOWS CONTROLLED A. FIB; R WRIST #22 INTACT AND PATENT; REIS CATH IN PLACE WITH YELLOW OUTPUT OF 275CC; ALL NEEDS RENDERED; SAFETY PRECAUTIONS IMPLEMENTED; WILL ENDORSE MADISON TO ONCOMING SHIFT
[2020-03-26 08:00] VITALS: BP_SYST 133; BP_SYST 145; BP_DIAS 63; BP_DIAS 70
--- NOTE | 2020-03-26 08:00 | NUR ---
CERTIFIED CYTOTECHNOLOGIST OPENING NOTES BEDSIDE ENDORSEMENT DONE. PATIENT IS IN BED SLEEPING, ABLE TO BE AWAKENED. A/O X2, EPISODE OF CONFUSION, BUT ABLE TO MAKE NEEDS KNOWN. BREATHING EVEN AND UNLABORED, TOLERATING ROOM AIR. ON TELE MONITORING, READING OF CONTROLLED A-FIB, NO CARDIAC DISTRESS NOTED. IV LINE ON RIGHT WRIST #22, INTACT AND PATENT. REIS CATH IN PLACE AND DRAINING YELLOW-COLORED URINE. SAFETY PRECS IN PLACE: BED LOCKED AND ON LOWEST POSITION, SR UP X2, CALL LIGHT W/IN REACH. WILL CONTINUE TO MONITOR.
[2020-03-26] MEDS: ASPIRIN 81 MG TAB.CHEW PO SCH (09:54)
[2020-03-26] MEDS: PANTOPRAZOLE 40 MG TABLET.DR PO SCH (09:54)
[2020-03-26] MEDS: LISINOPRIL (20MG) 20 MG TABLET PO SCH (09:55)
[2020-03-26] MEDS: CARVEDILOL 3.125 MG TABLET PO SCH ×2 (09:55→17:35)
[2020-03-26] MEDS: FUROSEMIDE 20 MG TABLET PO SCH (09:55)
[2020-03-26] MEDS: ENSURE ENLIVE 237 ML LIQUID (VANILLA) PO SCH ×3 (09:56→17:33)
[2020-03-26] MEDS: CEFEPIME 2 GM in IV D5W 100 ML IV SCH (12:20)
--- NOTE | 2020-03-26 14:50 | NUR ---
RN NOTES SPOKE W/ BEL CANCHOLA, AND INFORMED ABOUT CT PROCEDURE. PER JESIKA, OK TO CANCEL CT PROCEDURE FOR NOW. RADIOLOGY MADE AWARE.
--- NOTE | 2020-03-26 16:25 | NUR ---
RN NOTES SPECIMEN OBTAINED FOR COVID-19 ANTIGEN TEST. PROCEDURE TOLERATED WELL BY PATIENT.
--- NOTE | 2020-03-26 18:10 | NUR ---
RN NOTES RECEIVED CALL FROM LAB REGARDING RESULT OF COVID ANTIGEN TEST. PATIENT WITH POSITIVE RESULT. CHARGE NURSE MADE AWARE OF RESULT. SPOKE W/ XI, DTR, AND ALSO MADE AWARE. PATIENT IS IN BED RESTING, NO RESPIRATORY DISTRESS NOTED, BREATHING EVEN AND UNLABORED, TOLERATING ROOM AIR. WILL CONTINUE TO MONITOR.
--- NOTE | 2020-03-26 19:15 | NUR ---
RN NOTES ENDORSED TO XM1 TANK DRIVER RN THAT PATIENT IS TO BE TRANSFERRED TO [facility] AT AROUND 2000.
--- NOTE | 2020-03-26 19:30 | NUR ---
RN NOTES Received patient resting on bed. no complaints made at this time. For transfer to [facility] - Room 117. Awaiting for call back for the receiving RN at this time.
--- NOTE | 2020-03-26 21:30 | NUR ---
RN NOTES Pt transferred to Room 119-2 via hospital bed. Hand off given to RAFAL Rizzo for MADISON.
--- NOTE | 2020-03-26 21:50 | NUR ---
MS RN: CONTINUITY OF CARE Patient brought in by bed from [facility]. Patient is awake. Left arm swelling with Arm sling. Sacrum excoriation, had bowel movement, stool soft and mucoid. Turned and repositioned, made comfortable in bed. Contact, Droplet precaution maintained.
[2020-03-26 23:46] LABS: BASOPHILS # (AUTO) 0.2 /CMM (0.0-0.2); BASOPHILS % (AUTO) 1.3 % (0.0-2.0); EOSINOPHILS % (AUTO) 3.1 % (0.0-6.0); HEMATOCRIT 34 % (33-45); HEMOGLOBIN 10.7 g/dL (11.5-14.8); LYMPHOCYTES # (AUTO) 0.3 /CMM (0.8-4.8); MEAN CORPUSCULAR HGB CONC 32 g/dl (31.0-36.0); MEAN CORPUSCULAR VOLUME 91 fL (82-100); MONOCYTES % (AUTO) 5.7 % (2.0-12.0); NEUTROPHILS # (AUTO) 15.4 /CMM (1.8-8.9); NEUTROPHILS % (AUTO) 87.9 % (43.0-81.0); PLATELET COUNT (AUTO) 164 /CMM (150-450); RED BLOOD CELL COUNT(AUTO) 3.68 MIL/uL (4.0-5.2); WHITE BLOOD COUNT (AUTO) 17.5 K/uL (4.3-11.0)
[2020-03-27] MEDS: CEFEPIME 2 GM in IV D5W 100 ML IV SCH ×2 (00:14→11:30)
[2020-03-27 01:12] VITALS: BP 139/66
--- NOTE | 2020-03-27 06:35 | NUR ---
MS RN: END OF SHIFT REPORT Patient is A/O x2. Left upper arm incision surgical dressing C/D/I. Still swelling in Khari arms, elevated on pillows. On IV Cefepime, afebrile. Appears weak and pale, denies pain. Oxygen sat 96% on 2L via NC, no c/o SOB. Contact, Droplet isolation with Eye shield protection maintained. Had BM this shift, stool soft, mucoid with streak of blood. VTE score 5, no order for chemical prophylaxis, informed Marie/ZIGZAG ELASTIC ATTACHER with no new orders at this time, Per Marei/ZIGZAG ELASTIC ATTACHER to follow up with MD in am. Will endorse to oncoming RN.
--- NOTE | 2020-03-27 06:57 | NUR ---
MS RN: POOR INTRAVENOUS LINE ACCESS IV peripheral line access leaked x2, re inserted peripheral line x2 but venous line not lasted. Will endorse to oncoming RN, possible Midline insertion for IV antibiotic.
[2020-03-27 07:06] LABS: BASOPHILS % (AUTO) 0.2 % (0.0-2.0); EOSINOPHILS % (AUTO) 0.3 % (0.0-6.0); HEMATOCRIT 34 % (33-45); HEMOGLOBIN 10.8 g/dL (11.5-14.8); LYMPHOCYTES # (AUTO) 0.6 /CMM (0.8-4.8); LYMPHOCYTES % (AUTO) 3.9 % (20.0-44.0); MEAN CORPUSCULAR HGB CONC 32 g/dl (31.0-36.0); MEAN CORPUSCULAR VOLUME 93 fL (82-100); MONOCYTES # (AUTO) 0.8 /CMM (0.1-1.30); MONOCYTES % (AUTO) 5.7 % (2.0-12.0); NEUTROPHILS # (AUTO) 13.1 /CMM (1.8-8.9); NEUTROPHILS % (AUTO) 89.9 % (43.0-81.0); PLATELET COUNT (AUTO) 168 /CMM (150-450); RED BLOOD CELL COUNT(AUTO) 3.66 MIL/uL (4.0-5.2); WHITE BLOOD COUNT (AUTO) 14.6 K/uL (4.3-11.0)
[2020-03-27 07:26] LABS: CALCIUM, SERUM 8.3 mg/dL (8.5-10.1); CREATININE 0.6 mg/dL (0.6-1.3); POTASSIUM 3.3 mmol/L (3.5-5.1)
--- NOTE | 2020-03-27 07:30 | NUR ---
RN OPENING NOTE PT RESTING COMFORTABLY IN BED AWAKE, A/Ox2, ON NC 2LPM BREATHING IS EVEN AND UNLABORED, NO SIGNS OF RESP DISTRESS OR SOB. PT HAS BUE EDEMA. PT REIS CATH INTACT AND DRAINING TO GRAVITY WITH YELLOW AND CLEAR URINE. PT HAS RT AC #22 INTACT, FLUSHED AND PATENT WITH NO SIGNS OF INFECTION OR INFILTRATION. RT HAND #22 IS NOT PATENT AND WILL D/C SHORTLY. WILL REQUEST FOR MIDLINE IV ACCESS TODAY. AWARE OF POSITIVE STOOL OCCULT BLOOD. PT SAFETY PRECAUTIONS IN PLACE, BED LOCKED AND IN LOWEST POSITION, SR UPx2, CALL ARAMBULA WITHIN REACH, BED ALARM ON. WILL CONTINUE TO MONITOR
[2020-03-27 08:00] VITALS: BP 128/58
[2020-03-27] MEDS: ENSURE ENLIVE 237 ML LIQUID (VANILLA) PO SCH ×3 (08:00→17:14)
[2020-03-27] MEDS: ASPIRIN 81 MG TAB.CHEW PO SCH (09:00)
[2020-03-27] MEDS: FUROSEMIDE 20 MG TABLET PO SCH (09:16)
[2020-03-27] MEDS: CARVEDILOL 3.125 MG TABLET PO SCH ×2 (09:17→17:00)
[2020-03-27] MEDS: PANTOPRAZOLE 40 MG TABLET.DR PO SCH (09:17)
[2020-03-27] MEDS: LISINOPRIL (20MG) 20 MG TABLET PO SCH (09:18)
--- NOTE | 2020-03-27 09:19 | NUR ---
RN NOTE HOLDING ASPIRIN DUE TO POSITIVE OCCULT STOOL
[2020-03-27] MEDS ORDERED: POTASSIUM CHLORIDE 20 MEQ TAB.PRT.SR PO SCH (11:30)
--- NOTE | 2020-03-27 11:54 | NUR ---
RN NOTE SUNNY MIDLINE INSERTED SUCCESSFULLY AND OKAY TO USE
--- NOTE | 2020-03-27 13:50 | NUR ---
RN NOTE SPOKE WITH PT'S DAUGHTER AND ANSWERED ALL QUESTIONS TO HER SATISFACTION
--- NOTE | 2020-03-27 15:45 | NUR ---
RN NOTE PT RESTING COMFORTABLY IN BED WITH NO SIGNS OF RESP DISTRESS OR SOB. PT REORIENTED TO SITUATION AND PLAN OF CARE
[2020-03-27 16:00] VITALS: BP 101/47
--- NOTE | 2020-03-27 19:00 | NUR ---
RN CLOSING NOTE PT IN STABLE CONDITION. PT ON 2LPM NC WITH NO SIGNS OF RESP DISTRESS OR SOB, BREATHING IS EVEN AND UNLABORED. PT HAS SUNNY MIDLINE AND RT HAND #22 BOTH INTACT, FLUSHED, SL WITH NO SIGNS OF INFECTION OR INFILTRATION. PT SAFETY MEASURES IN PLACE, BED LOCKED AND IN LOWEST POSITION, SR UP x2, BED ALARM ON, CALL LIGHT WITHIN REACH. WILL ENDORSE [place] TO ONCOMING NURSE
--- NOTE | 2020-03-27 19:41 | NUR ---
MS RN NOTES RECEIVED PATIENT, RESTING COMFORTABLY IN BED AWAKE, A/Ox2, ON NC 2LPM BREATHING IS EVEN AND UNLABORED, NO SIGNS OF RESP DISTRESS OR SOB. PT HAS BUE EDEMA. REIS CATH INTACT AND DRAINING TO GRAVITY WITH YELLOW AND CLEAR URINE. RIGHT UPPER MIDLINE INTACT AND PATENT. . AWARE OF POSITIVE STOOL OCCULT BLOOD ENDORSED BY AM NURSE RAFAL FERRIS. . PT SAFETY PRECAUTIONS IN PLACE, BED LOCKED AND IN LOWEST POSITION, SR UPx2, CALL LIGHT WITHIN EASY REACH, BED ALARM ON.ALL NEEDS ANTICIPATED. WILL CONTINUE TO MONITOR ACCORDINGLY.
[2020-03-28] MEDS: CEFEPIME 2 GM in IV D5W 100 ML IV SCH ×3 (00:24→23:59)
--- NOTE | 2020-03-28 06:12 | NUR ---
RN NOTES ALL NEEDS ATTENDED AND MET. ABLE TO REST AND SLEPT AT INTERVALS, NO SIGNS OF ACUTE DISTRESS NOTED. WILL ENDORSE TO AM NURSE FOR CONTINUITY OF CARE.
--- NOTE | 2020-03-28 07:30 | NUR ---
RN NOTE PT RESTING COMFORTABLY IN BED AWAKE, A/Ox2, ON NC 2LPM BREATHING IS EVEN AND UNLABORED, NO SIGNS OF RESP DISTRESS OR SOB. PT HAS BUE EDEMA. PT REIS CATH INTACT AND DRAINING TO GRAVITY WITH BUCK AND CLEAR URINE. PT HAS SUNNY MIDLINE, FLUSHED AND PATENT WITH NO SIGNS OF INFECTION OR INFILTRATION. RT HAND #22 IS NOT PATENT AND WILL D/C SHORTLY. PT SAFETY PRECAUTIONS IN PLACE, BED LOCKED AND IN LOWEST POSITION, SR UPx2, CALL ARAMBULA WITHIN REACH, BED ALARM ON. WILL CONTINUE TO MONITOR
[2020-03-28 08:00] VITALS: BP 116/62
[2020-03-28] MEDS: ENSURE ENLIVE 237 ML LIQUID (VANILLA) PO SCH ×3 (08:00→17:49)
[2020-03-28] MEDS: ASPIRIN 81 MG TAB.CHEW PO SCH (09:00)
--- NOTE | 2020-03-28 09:30 | NUR ---
RN NOTE HELD ASPIRIN D/T POSITIVE OCCULT BLOOD STOOL SAMPLE
[2020-03-28] MEDS: LISINOPRIL (20MG) 20 MG TABLET PO SCH (09:33)
[2020-03-28] MEDS: PANTOPRAZOLE 40 MG TABLET.DR PO SCH (09:33)
[2020-03-28] MEDS: FUROSEMIDE 20 MG TABLET PO SCH (09:33)
[2020-03-28] MEDS: CARVEDILOL 3.125 MG TABLET PO SCH ×2 (09:33→17:48)
[2020-03-28] MEDS: CARBIDOPA/LEVODOPA 25/100 MG 1 UDTAB PO SCH (09:39)
[2020-03-28 10:44] LABS: BASOPHILS # (AUTO) 0.1 /CMM (0.0-0.2); BASOPHILS % (AUTO) 0.4 % (0.0-2.0); EOSINOPHILS % (AUTO) 0.4 % (0.0-6.0); HEMATOCRIT 31 % (33-45); LYMPHOCYTES # (AUTO) 0.6 /CMM (0.8-4.8); LYMPHOCYTES % (AUTO) 4.4 % (20.0-44.0); MEAN CORPUSCULAR HGB CONC 32 g/dl (31.0-36.0); MEAN CORPUSCULAR VOLUME 92 fL (82-100); MONOCYTES # (AUTO) 0.7 /CMM (0.1-1.30); MONOCYTES % (AUTO) 5.3 % (2.0-12.0); NEUTROPHILS # (AUTO) 12.3 /CMM (1.8-8.9); NEUTROPHILS % (AUTO) 89.5 % (43.0-81.0); PLATELET COUNT (AUTO) 165 /CMM (150-450); RED BLOOD CELL COUNT(AUTO) 3.41 MIL/uL (4.0-5.2); WHITE BLOOD COUNT (AUTO) 13.8 K/uL (4.3-11.0)
--- NOTE | 2020-03-28 12:30 | NUR ---
RN NOTE SPOKE WITH PT'S DAUGHTER AND ANSWERED QUESTIONS TO HER SATISFACTION
[2020-03-28 16:00] VITALS: BP 131/50
--- NOTE | 2020-03-28 16:00 | NUR ---
RN NOTE PT RESTING IN BED COMFORTABLY WATCHING TV. NO SIGNS OF RESP DISTRESS OR SOB. PT DENIES PAIN
--- NOTE | 2020-03-28 19:00 | NUR ---
RN CLOSING NOTE PT IN STABLE CONDITION. PT ON 2LPM NC WITH NO SIGNS OF RESP DISTRESS OR SOB, BREATHING IS EVEN AND UNLABORED. PT HAS SUNNY MIDLINE AND RT HAND #22 BOTH INTACT, FLUSHED, SL WITH NO SIGNS OF INFECTION OR INFILTRATION. PT SAFETY MEASURES IN PLACE, BED LOCKED AND IN LOWEST POSITION, BED ALARM ON, CALL LIGHT WITHIN REACH SR UPx2. WILL ENDORSE MADISON TO ONCOMING NURSE
--- NOTE | 2020-03-28 19:30 | NUR ---
MS/RN NOTES RECEIVED PATIENT IN BED RESTING, WATCHING TV. PATIENT IS ALERT AND ORIENTED X 2. PATIENTS BREATHING IS EVEN AND UNLABORED. NO SIGNS OF SOB OR RESPIRATORY DISTRESS NOTED. PATIENT HAS IV ACCESS ON RIGHT UA MIDLINE IN PLACE. PATIENT IS NOT SIGNS OF DISTRESS. SAFETY MEASURES ARE IN PLACE, BED IS LOCKED AND PLACED IN THE LOW POSITION SIDE RAILS UP X 2, CALL LIGHT IS WITHIN REACH. WILL CONTINUE TO MONITOR.
--- NOTE | 2020-03-29 06:45 | NUR ---
MS/RN NOTES PATIENT IN BED RESTING. PATIENT IS ALERT AND ORIENTED X 1-2. PATIENTS BREATHING IS EVEN AND UNLABORED. NO SIGNS OF SOB OR RESPIRATORY DISTRESS NOTED. PATIENT HAS IV ACCESS ON RIGHT UA MIDLINE IN PLACE FLUSHING WELL. PATIENT IS NOT SIGNS OF DISTRESS. ALL NEEDS HAVE BEEN MET DURING. SAFETY MEASURES ARE IN PLACE, BED IS LOCKED AND PLACED IN THE LOW POSITION SIDE RAILS UP X 2, CALL LIGHT IS WITHIN REACH. WILL ENDORSE CARE TO DAY SHIFT NURSE.
--- NOTE | 2020-03-29 07:30 | NUR ---
RN OPENING NOTE PT RESTING COMFORTABLY IN BED AWAKE, A/Ox2, ON NC 2LPM BREATHING IS EVEN AND UNLABORED, NO SIGNS OF RESP DISTRESS OR SOB. PT HAS BUE EDEMA. PT REIS CATH INTACT AND DRAINING TO GRAVITY WITH BUCK AND SEDIMENT IN URINE. PT HAS SUNNY MIDLINE, FLUSHED AND PATENT WITH NO SIGNS OF INFECTION OR INFILTRATION. PT SAFETY PRECAUTIONS IN PLACE, BED LOCKED AND IN LOWEST POSITION, SR UPx2, CALL ARAMBULA WITHIN REACH, BED ALARM ON. WILL CONTINUE TO MONITOR
[2020-03-29 07:58] LABS: BASOPHILS # (AUTO) 0.1 /CMM (0.0-0.2); BASOPHILS % (AUTO) 0.5 % (0.0-2.0); EOSINOPHILS % (AUTO) 0.6 % (0.0-6.0); HEMATOCRIT 34 % (33-45); HEMOGLOBIN 10.9 g/dL (11.5-14.8); LYMPHOCYTES # (AUTO) 0.6 /CMM (0.8-4.8); LYMPHOCYTES % (AUTO) 5.9 % (20.0-44.0); MEAN CORPUSCULAR HGB CONC 32 g/dl (31.0-36.0); MEAN CORPUSCULAR VOLUME 91 fL (82-100); MONOCYTES # (AUTO) 0.6 /CMM (0.1-1.30); MONOCYTES % (AUTO) 6.1 % (2.0-12.0); NEUTROPHILS # (AUTO) 9.2 /CMM (1.8-8.9); NEUTROPHILS % (AUTO) 86.9 % (43.0-81.0); PLATELET COUNT (AUTO) 173 /CMM (150-450); RED BLOOD CELL COUNT(AUTO) 3.73 MIL/uL (4.0-5.2); WHITE BLOOD COUNT (AUTO) 10.5 K/uL (4.3-11.0)
[2020-03-29 08:00] VITALS: BP 140/84
[2020-03-29] MEDS: ENSURE ENLIVE 237 ML LIQUID (VANILLA) PO SCH ×3 (08:00→17:46)
[2020-03-29] MEDS: CARBIDOPA/LEVODOPA 25/100 MG 1 UDTAB PO SCH (09:10)
[2020-03-29] MEDS: PANTOPRAZOLE 40 MG TABLET.DR PO SCH (09:10)
[2020-03-29] MEDS: ASPIRIN 81 MG TAB.CHEW PO SCH (09:10)
[2020-03-29] MEDS: FUROSEMIDE 20 MG TABLET PO SCH (09:10)
[2020-03-29] MEDS: CARVEDILOL 3.125 MG TABLET PO SCH ×2 (09:12→17:45)
[2020-03-29] MEDS: LISINOPRIL (20MG) 20 MG TABLET PO SCH (09:12)
--- NOTE | 2020-03-29 12:00 | NUR ---
RN NOTE PT STATED PAIN. GAVE NORCO 5MG AT 1147, WILL ASSESS PAIN LEVEL ONE HOUR FROM THIS POINT
[2020-03-29] MEDS: CEFEPIME 2 GM in IV D5W 100 ML IV SCH ×2 (13:10→23:56)
[2020-03-29 16:00] VITALS: BP 127/71
[2020-03-29] MEDS ORDERED: POTASSIUM CHLORIDE 20 MEQ POWDER PACKET PO SCH (16:00)
--- NOTE | 2020-03-29 17:30 | NUR ---
RN NOTE FACETIMED WITH PT AND PT'S DAUGHTER XI. ALL OF XI'S QUESTIONS WERE ANSWERED REGARDING PT'S STATUS. PT HAPPY AND RESTING COMFORTABLY IN BED, NO SIGNS OF RESP DISTRESS OR SOB
[2020-03-29 18:05] LABS: CALCIUM, SERUM 8.7 mg/dL (8.5-10.1); CREATININE 0.7 mg/dL (0.6-1.3); POTASSIUM 4.4 mmol/L (3.5-5.1)
--- NOTE | 2020-03-29 19:00 | NUR ---
RN CLOSING NOTE PT IN STABLE CONDITION. NO SIGN OF RESP DISTRESS OR SOB. ALL PT SAFETY PRECAUTIONS IN PLACE. WILL ENDORSE MADISON TO ONCOMING NURSE
[2020-03-29 20:00] VITALS: BP 133/67
--- NOTE | 2020-03-29 20:00 | NUR ---
RN opening notes Received Pt from morning nurse. Pt is sitting in bed comfortably watching TV. Pt is alert and orientedX1-2 and able to make needs known. Respiration normal in 2 L NC. No SOB. No S/S of distress noted. SUNNY midline is clean, intact, flushes well and SL. Safety precautions is maintained. Bed at low position, brakes locked, side rails upX3 and call light is within reach. Will continue to monitor.
[2020-03-30 04:00] VITALS: BP 125/59
--- NOTE | 2020-03-30 06:50 | NUR ---
RN closing notes Pt is sleeping in bed comfortably. Pt is alert and orientedX1-2 and able to make needs known. Respiration normal in 2 L NC. No SOB. No S/S of distress noted. VS is stable. Afebrile. SUNNY midline is clean, intact, flushes well and SL. Kept Pt clean, dry and comfortable. All needs met and attended. Safety precautions is maintained. Bed at low position, brakes locked, side rails upX3 and call light is within reach. Will endorse to morning nurse for MADISON.
[2020-03-30 08:08] LABS: BASOPHILS % (AUTO) 0.4 % (0.0-2.0); EOSINOPHILS % (AUTO) 0.1 % (0.0-6.0); HEMATOCRIT 32 % (33-45); HEMOGLOBIN 10.6 g/dL (11.5-14.8); LYMPHOCYTES # (AUTO) 0.6 /CMM (0.8-4.8); LYMPHOCYTES % (AUTO) 5.2 % (20.0-44.0); MEAN CORPUSCULAR HGB CONC 33 g/dl (31.0-36.0); MEAN CORPUSCULAR VOLUME 89 fL (82-100); MONOCYTES # (AUTO) 0.9 /CMM (0.1-1.30); MONOCYTES % (AUTO) 7.6 % (2.0-12.0); NEUTROPHILS # (AUTO) 10.2 /CMM (1.8-8.9); NEUTROPHILS % (AUTO) 86.7 % (43.0-81.0); PLATELET COUNT (AUTO) 165 /CMM (150-450); RED BLOOD CELL COUNT(AUTO) 3.63 MIL/uL (4.0-5.2); WHITE BLOOD COUNT (AUTO) 11.8 K/uL (4.3-11.0)
[2020-03-30] MEDS: ENSURE ENLIVE 237 ML LIQUID (VANILLA) PO SCH ×3 (08:09→16:51)
--- NOTE | 2020-03-30 08:19 | NUR ---
MS RN OPENING NOTES Patient is sleeping in bed, able to be awakened. Alert and oriented X1-2, w/ episode of forgetfulness, but able to make needs known. Breathing even and unlabored, on O2 at 2lpm via NC. SUNNY midline is intact and patent. Safety precautions in place: bed locked and on lowest position, side rails up X2 and call light is within reach. Will continue to monitor.
[2020-03-30] MEDS: ASPIRIN 81 MG TAB.CHEW PO SCH (10:24)
[2020-03-30] MEDS: POTASSIUM CHLORIDE 20 MEQ TAB.PRT.SR PO SCH (10:24)
[2020-03-30] MEDS: CARBIDOPA/LEVODOPA 25/100 MG 1 UDTAB PO SCH (10:24)
[2020-03-30] MEDS: PANTOPRAZOLE 40 MG TABLET.DR PO SCH (10:24)
[2020-03-30] MEDS: FUROSEMIDE 20 MG TABLET PO SCH (10:24)
[2020-03-30] MEDS: LISINOPRIL (20MG) 20 MG TABLET PO SCH (10:24)
[2020-03-30] MEDS: CARVEDILOL 3.125 MG TABLET PO SCH ×2 (10:28→16:51)
[2020-03-30] MEDS: CEFEPIME 2 GM in IV D5W 100 ML IV SCH ×2 (11:44→23:05)
[2020-03-30 12:00] VITALS: BP 130/60
--- NOTE | 2020-03-30 13:20 | NUR ---
RN NOTES SPOKE W/ CORA LAYNE, AND GAVE UPDATE REGARDING PATIENT'S STATUS. AWARE OF PATIENT'S CURRENT CONDITION. PATIENT IS CURRENTLY ON O2 AT 2-3LPM VIA NC, BREATHING UNLABORED. WILL CONTINUE TO MONITOR. Addendum: 03/30/20 at 1522 by YARI MORTON RN O2 SAT IS BETWEEN 97-99%.
[2020-03-30] MEDS: ACETAMINOPHEN 325 MG TABLET PO PRN (16:50)
--- NOTE | 2020-03-30 19:08 | NUR ---
MS RN CLOSING NOTES Patient is resting in bed, awake and verbally responsive. Alert and oriented X1-2, w/ episode of forgetfulness, but able to make needs known. Breathing even and unlabored, on O2 at 2lpm via NC, no sob nor respiratory distress. SUNNY midline is intact and patent. Due meds given during the shift. Assisted w/ bed mobility and ADLs as tolerated. Safety precautions maintained: bed locked and on lowest position, side rails up X2 and call light is within reach. Will endorse to maintenance technician 3rd shift RN for marely.
--- NOTE | 2020-03-30 19:55 | NUR ---
RN NOTES PATIENT A/O1-2 WITH EPISODES OF FORGETFULNESS. BREATHING EVEN AND UNLABORED. NOTED WITH COUGH. O2 @ 2LPM VIA NASAL CANNULA, NO SOB NOTED. WITH SUNNY MIDLINE, INTACT AND PATENT. NO S/S OF ANY DISCOMFORT. BED LOCKED AND IN LOWEST POSITION. SAFETY MEASURES IMPLEMENTED. CALL LIGHT WITHIN REACH. WILL CONTINUE TO MONITOR.
[2020-03-30 20:00] VITALS: BP 116/56
[2020-03-31 04:00] VITALS: BP 141/54
--- NOTE | 2020-03-31 07:30 | NUR ---
RECEIVED PATIENT IN BED. NO ACUTE DISTRESS NOTED. PATIENT ALERT & ORIENTED X2, WITH EPISODES OF CONFUJSION. PATIENT ON 2L NASAL CANULA, SATURATING WELL. PATIENT RIGHT UPPER ARM MIDLINE IN PLACE, INTACT, PATENT, FLUSHED WELL. PATIENT SAFETY MEASURES MAINTAINED. CALL LIGHT WITHIN REACH. WILL CONTINUE TO MONITOR.
--- NOTE | 2020-03-31 07:34 | NUR ---
RN NOTES PATIENT A/O1-2 WITH EPISODES OF FORGETFULNESS. BREATHING EVEN AND UNLABORED. NOTED WITH COUGH. O2 @ 2LPM VIA NASAL CANNULA, O2 SAT 93% NO SOB NOTED. WITH SUNNY MIDLINE, INTACT AND PATENT. NO S/S OF ANY DISCOMFORT. BED LOCKED AND IN LOWEST POSITION. SAFETY MEASURES IMPLEMENTED. CALL LIGHT WITHIN REACH. ENDORSED TO ONCOMING SHIFT.
[2020-03-31] MEDS: PANTOPRAZOLE 40 MG TABLET.DR PO SCH (08:56)
[2020-03-31] MEDS: CARBIDOPA/LEVODOPA 25/100 MG 1 UDTAB PO SCH (08:56)
[2020-03-31] MEDS: ENSURE ENLIVE 237 ML LIQUID (VANILLA) PO SCH ×3 (08:57→17:07)
[2020-03-31] MEDS: POTASSIUM CHLORIDE 20 MEQ TAB.PRT.SR PO SCH (08:57)
[2020-03-31] MEDS: ASPIRIN 81 MG TAB.CHEW PO SCH (08:57)
[2020-03-31 09:08] LABS: BASOPHILS % (AUTO) 0.6 % (0.0-2.0); EOSINOPHILS % (AUTO) 0.2 % (0.0-6.0); HEMATOCRIT 36 % (33-45); HEMOGLOBIN 10.9 g/dL (11.5-14.8); LYMPHOCYTES # (AUTO) 0.5 /CMM (0.8-4.8); LYMPHOCYTES % (AUTO) 8.7 % (20.0-44.0); MEAN CORPUSCULAR HGB CONC 30 g/dl (31.0-36.0); MEAN CORPUSCULAR VOLUME 95 fL (82-100); MONOCYTES # (AUTO) 0.4 /CMM (0.1-1.30); MONOCYTES % (AUTO) 6.9 % (2.0-12.0); NEUTROPHILS # (AUTO) 5.1 /CMM (1.8-8.9); NEUTROPHILS % (AUTO) 83.6 % (43.0-81.0); PLATELET COUNT (AUTO) 159 /CMM (150-450); RED BLOOD CELL COUNT(AUTO) 3.76 MIL/uL (4.0-5.2)
[2020-03-31] MEDS: CARVEDILOL 3.125 MG TABLET PO SCH ×2 (09:36→17:07)
[2020-03-31] MEDS: LISINOPRIL (20MG) 20 MG TABLET PO SCH (09:36)
[2020-03-31] MEDS: FUROSEMIDE 20 MG TABLET PO SCH (09:37)
[2020-03-31] MEDS: ACETAMINOPHEN 325 MG TABLET PO PRN (09:38)
[2020-03-31] MEDS: CEFEPIME 2 GM in IV D5W 100 ML IV SCH (12:14)
[2020-03-31] MEDS ORDERED: ENOXAPARIN SODIUM 40 MG/0.4 ML DISP.SYRIN SQ SCH (12:49)
[2020-03-31 16:00] VITALS: BP 132/67
[2020-03-31 17:07] VITALS: BP 132/67
[2020-03-31] MEDS ORDERED: FERROUS SULFATE (325 MG) 325 MG/TAB TABLET PO SCH (18:00)
--- NOTE | 2020-03-31 18:33 | NUR ---
PATIENT IN BED. NO ACUTE DISTRESS NOTED. PATIENT ALERT & ORIENTED X2, WITH EPISODES OF CONFUJSION. PATIENT ON 2L NASAL CANULA, SATURATING WELL. PATIENT RIGHT UPPER ARM MIDLINE IN PLACE, INTACT, PATENT, FLUSHED WELL. PATIENT SAFETY MEASURES MAINTAINED. CALL LIGHT WITHIN REACH. WILL ENDORSE PLAN OF CARE TO ONCOMING SHIFT
--- NOTE | 2020-03-31 18:49 | NUR ---
PATIENT DISCHARGED TO AMBULANCE GOING TO [facility]. PATIENT MEDICALLY STABLE, ALERT & AWARE OF THE TRANSFER. PATIENT BELONGINGS GIVEN, PATIENT DISCHARGE PACKET GIVEN, REPORT GIVEN TO RAFAL GALLEGOS AT [facility] AND TO AMBULANCE.
== END 2020-03-31 19:05 | DRG 853 ==
LOC: ICU 19:55 → TELE 03-20 14:01 → MED 03-26 14:08 → MEDSG1 03-26 21:22
PROVIDERS: ADMIT Student in an Organized Health Care Education/Training Program; ATTEND Nurse Practitioner Acute Care
PROC: 4A023N7 Measurement of Cardiac Sampling and Pressure, Left Heart, Percutaneous Approach (ICD-10-PCS; principal; 2020-03-18)
PROC: 0PSG04Z Reposition Left Humeral Shaft with Internal Fixation Device, Open Approach (ICD-10-PCS; 2020-03-18)
PROC: B211YZZ Fluoroscopy of Multiple Coronary Arteries using Other Contrast (ICD-10-PCS; 2020-03-18)
PROC: B215YZZ Fluoroscopy of Left Heart using Other Contrast (ICD-10-PCS; 2020-03-18)
PROC: 05HD33Z Insertion of Infusion Device into Right Cephalic Vein, Percutaneous Approach (ICD-10-PCS; 2020-03-27)
DX: A41.89 Other specified sepsis (principal); U07.1 COVID-19; I21.4 Non-ST elevation (NSTEMI) myocardial infarction; N17.0 Acute kidney failure with tubular necrosis; I50.23 Acute on chronic systolic (congestive) heart failure; J12.89 Other viral pneumonia; J15.9 Unspecified bacterial pneumonia; J96.01 Acute respiratory failure with hypoxia; R65.21 Severe sepsis with septic shock; S42.212A Unspecified displaced fracture of surgical neck of left humerus, initial encounter for closed fracture; I48.20 Chronic atrial fibrillation, unspecified; I13.0 Hypertensive heart and chronic kidney disease with heart failure and stage 1 through stage 4 chronic kidney disease, or unspecified chronic kidney disease; M62.82 Rhabdomyolysis; D61.818 Other pancytopenia; J98.11 Atelectasis; G93.1 Anoxic brain damage, not elsewhere classified; C90.00 Multiple myeloma not having achieved remission; E87.0 Hyperosmolality and hypernatremia; G93.40 Encephalopathy, unspecified; N18.9 Chronic kidney disease, unspecified; Z86.711 Personal history of pulmonary embolism; I25.10 Atherosclerotic heart disease of native coronary artery without angina pectoris; D69.6 Thrombocytopenia, unspecified; E87.6 Hypokalemia; I48.0 Paroxysmal atrial fibrillation; Z79.01 Long term (current) use of anticoagulants; Z79.899 Other long term (current) drug therapy; E03.9 Hypothyroidism, unspecified; F02.80 Dementia in other diseases classified elsewhere, unspecified severity, without behavioral disturbance, psychotic disturbance, mood disturbance, and anxiety; G20 Parkinson's disease; W19.XXXA Unspecified fall, initial encounter; L89.156 Pressure-induced deep tissue damage of sacral region; N14.1 Nephropathy induced by other drugs, medicaments and biological substances; T50.8X5A Adverse effect of diagnostic agents, initial encounter; L98.9 Disorder of the skin and subcutaneous tissue, unspecified; R22.2 Localized swelling, mass and lump, trunk; Y92.009 Unspecified place in unspecified non-institutional (private) residence as the place of occurrence of the external cause; E61.1 Iron deficiency; L02.92 Furuncle, unspecified
CPT/HCPCS: 36415; 70450-TC; 71045-TC; 73060-TC; 76770-TC; 77075-TC; 80048-TC; 80053-TC; 80061-TC; 81001; 82232; 82272-TC; 82550-TC; 82553; 82728-TC; 82784; 83540-TC; 83735-TC; 84100-TC; 84155; 84165; 84443-TC; 84484-TC; 85025-TC; 85610-TC; 85730-TC; 86140-TC; 86225; 86235; 86334; 86431-TC; 87040-TC; 93971-TC; 97110-TC; 97112-TC; 97530-TC; A6209; C1713; C1887; G0378; G0500; J0690; J0692; J1644; J1650; J2250; J2270; J2543; J2704; J2765; J3010; J3370; J3480; J3490; J7050; J7060; Q9967; U0003